=== PATIENT | male | born 1990 | race Caucasian/White ===

== ENCOUNTER 2020-02-11 08:15 | Emergency (ER) | payer SELFPAY ==
[~2020-02-11] VITALS: Ht 157.5 cm; Wt 98.0 kg
[2020-02-11 08:18] VITALS: BP 134/86
--- NOTE | 2020-02-11 08:24 | NUR ---
Patient ambulated to bed 12. RN evaluating patient at bedside.
--- NOTE | 2020-02-11 08:29 | NUR ---
Dr. Garcia is evaluating the patient at bedside.
--- NOTE | 2020-02-11 08:30 | NUR ---
C/O BRIEF EPISODE OF PALPITATIONS STARTING LAST NIGHT THAT HAS NOW RESOLVED. PT STATES LAST NIGHT HE FELT HIS HEART BEATING FAST AND BEGAN TO HAVE A PAIN 5/10 ON THE L SIDE OF HIS CHEST THAT WENT AWAY AFTER A FEW MINUTES. PT STATES HE ALSO DEVELOPED COLD SWEATS AND NAUSEA WELL. PT REPORTS HE TOOK ONE TYLENOL FOR PAIN RELIEF. PT DENIES CURRENT SYMPTOMS AT THIS TIME. DENIES HX OF CARDIAC PROBLEMS, DENIES SOB OR CHEST PAIN AT THIS TIME. BED IN LOW POSITION, SIDE RAIL UP X1.
[2020-02-11] MEDS ORDERED: NACL 0.9% 1,000 ML IV ONE (08:35)
[2020-02-11 08:50] LABS: BASOPHILS % (AUTO) 0.3 % (0.0-2.0); EOSINOPHILS # (AUTO) 0.4 K/uL (0-0.4); HEMATOCRIT 49.1 % (36-52); HEMOGLOBIN 16.7 g/dL (12.0-18.0); LYMPHOCYTES # (AUTO) 1.4 K/uL (2.0-11.5); LYMPHOCYTES % (AUTO) 15.7 % (20.5-51.1); MEAN CORPUSCULAR HEMOGLOBIN 29 pg (27-31); MEAN CORPUSCULAR HGB CONC 34 g/dL (33-37); MEAN CORPUSCULAR VOLUME 84.8 fL (80-94); MONOCYTES # (AUTO) 0.7 K/uL (0.8-1.0); MONOCYTES % (AUTO) 7.9 % (1.7-9.3); NEUTROPHILS # (AUTO) 6.6 K/uL (1.8-7.7); NEUTROPHILS % (AUTO) 72.1 % (42.2-75.2); PLATELET COUNT (AUTO) 251 K/uL (140-450); RED BLOOD CELL COUNT(AUTO) 5.78 MIL/uL (4.20-6.10); RED CELL DISTRIBUTION WIDTH 13.7 % (11.6-13.7); WHITE BLOOD COUNT (AUTO) 9.2 K/uL (4.8-10.8)
[2020-02-11 09:11] LABS: ANION GAP 14.6 (8-16); CARBON DIOXIDE 26.5 mmol/L (21-32); FREE T4 (FREE THYROXINE) 1.03 ng/dL (0.76-1.46); POTASSIUM 4.1 mmol/L (3.5-5.1); THYROID STIMULATING HORMONE 0.61 uIU/mL (0.34-3.74); TOTAL BILIRUBIN 0.7 mg/dL (0.0-1.0)
--- NOTE | 2020-02-11 12:50 | NUR ---
Dr. Garcia is reevaluating the patient at bedside.
[2020-02-11 13:03] VITALS: BP 122/77
--- NOTE | 2020-02-11 13:04 | NUR ---
Patient discharged with v/s stable. Written and verbal after care instructions given and explained. Patient verbalized understanding. Ambulatory with steady gait. All questions addressed prior to discharge. Advised to follow up with PMD.
== END 2020-02-11 13:04 | disposition home or self-care (01) ==
LOC: MED 08:15
DX: R07.9 Chest pain, unspecified (principal)
CPT/HCPCS: 36415; 71045; 80053; 84439; 84443; 84484; 85025; 93005; 96360; 99285; J7030; Q0092

== ENCOUNTER 2020-10-19 09:58 | Emergency (ER) | payer MEDICAID ==
[~2020-10-19] VITALS: Ht 157.5 cm; Wt 97.5 kg
[2020-10-19 09:59] VITALS: BP 148/88
--- NOTE | 2020-10-19 10:10 | NUR ---
Patient ambulated to bed 02 with steady/even gait.
--- NOTE | 2020-10-19 10:12 | NUR ---
40 y/o M BIB from home with c/c bilateral ear pain. Patient A&Ox4, ambulatory, states he went swimming in a pool yesterday and woke up at 0730 with bilateral ear pain and associated hearing loss, dizziness. Patient states at 0700; headache to bilateral temporal. Patient states ear pain as 6/10, pressure/intermittent, non-radiating. Reports Ibuprofen 200mg at 0900 with minor relief. Patient denies N/V, blurry vision, fever/chills, cold-like symptoms. Bed locked in lowest position, side rails x 1. Lights dim for comfort. PMH/Sx/Meds: Denies NKA Addendum: 10/19/20 at 1017 by MED Pt denies any ear drainage; states hearing feels "muffled"; reports dizziness due to headache.
--- NOTE | 2020-10-19 10:26 | NUR ---
Dr. Mead is evaluating patient at bedside.
[2020-10-19 10:34] VITALS: BP 148/88
== END 2020-10-19 10:34 | disposition home or self-care (01) ==
LOC: MED 09:58
DX: H61.23 Impacted cerumen, bilateral (principal); R03.0 Elevated blood-pressure reading, without diagnosis of hypertension; R42 Dizziness and giddiness
CPT/HCPCS: 99281